=== PATIENT | male | born 1950 | race Caucasian/White ===

== ENCOUNTER → 2017-02-01 | Outpatient (CLI) | payer MEDICARE, OTHER ==
[2017-02-01 10:36] LABS: BASO % 1 % (0-3); EOS # 0.2 x10^3/uL (0.0-0.7); EOS % 3 % (0-3); HEMATOCRIT 43.9 % (39.0-53.0); HEMOGLOBIN 15.5 g/dL (13.0-17.5); LYMPH % 18 % (24-48); MEAN CORPUSCULAR HEMOGLOBIN 31 pg (25-35); MEAN CORPUSCULAR HGB CONC 35 g/dL (31-37); MEAN CORPUSCULAR VOLUME 88 fL (79-100); MONO # 0.5 x10^3/uL (0.0-1.1); MONO % 9 % (0-9); NEUT # 3.8 x10^3uL (1.8-7.7); NEUT % 69 % (31-73); PLATELET COUNT 156 x10^3/uL (140-400); RED BLOOD COUNT 4.97 x10^6/uL (4.30-5.70); RED CELL DISTRIBUTION WIDTH 13.2 % (11.5-14.5); WHITE BLOOD COUNT 5.4 x10^3/uL (4.0-11.0)
[2017-02-01 10:49] LABS: ALBUMIN 4.1 g/dL (3.4-5.0); ALBUMIN/GLOBULIN RATIO 1.3 (1.0-1.7); CALCIUM 9.7 mg/dL (8.5-10.1); CREATININE 0.9 mg/dL (0.7-1.3); GFR 84.7; POTASSIUM 3.6 mmol/L (3.5-5.1); TOTAL BILIRUBIN 0.7 mg/dL (0.2-1.0); TOTAL PROTEIN 7.2 g/dL (6.4-8.2)
--- NOTE | 2017-02-01 13:57 | RAD ---
Three-view study of both knees History: Chronic bilateral knee pain Left knee: No acute fracture or dislocation or osteolytic process is seen. There is moderate joint space narrowing and spurring of the medial tibiofemoral joint compartment. There is mild spurring without joint space narrowing of the lateral tibiofemoral joint compartment. There is mild spurring of the patellofemoral joint compartment. No significant knee joint effusion is seen. IMPRESSION: Tricompartmental primary osteoarthritis of the left knee. Right knee: No acute fracture or dislocation or osteolytic process is seen. There is moderate joint space narrowing and spurring of the medial tibiofemoral joint compartment. Mild spurring without joint space narrowing is seen involving the lateral tibiofemoral joint compartment. Mild spurring of the patellofemoral joint compartment is seen. No significant joint effusion is seen. IMPRESSION: Tricompartmental primary osteoarthritis of the right knee.
== END | disposition home or self-care (01) ==
LOC: LAB 09:14
PROVIDERS: ATTEND Family Medicine
DX: M17.0 Bilateral primary osteoarthritis of knee (principal); M25.80 Other specified joint disorders, unspecified joint; I10 Essential (primary) hypertension; E11.9 Type 2 diabetes mellitus without complications; E78.5 Hyperlipidemia, unspecified
CPT/HCPCS: 36415; 73562; 80053; 80061; 85025

== ENCOUNTER → 2020-05-06 | Outpatient (CLI) | payer MEDICARE, OTHER ==
--- NOTE | 2020-05-06 17:46 | RAD ---
EXAMINATION: MG DIAGNOSTIC BILAT, US BREAST RT History: Breast pain and swelling Comparison: None. Technique: Bilateral digital diagnostic mammogram views were obtained. CAD was utilized. Focused gra yscale and color Doppler ultrasound of the right breast in area of concern in the retroareolar region . Findings: Mammogram: Breast Tissue Density A : The breasts are almost entirely fatty. In the right breast, there is a subglandular flame-shaped density consistent with gynecomastia. There are no dominant masses, suspicious microcalcifications, or architectural distortion in either breast . Ultrasound: In the retroareolar right breast, there is flame shaped hypoechoic tissue compatible with gynecomastia. No suspicious mass. IMPRESSION: 1. Right gynecomastia. 2. No evidence of malignancy. BI-RADS category 2: Benign findings. The images were reviewed with computer aided detection. Mammography is the most sensitive method for finding small breast cancers, but it does not detect the m all and is not a substitute for careful clinical examination. A negative mammogram does not negate a clinically suspicious finding and should not result in delay in biopsying a clinically suspicious a bnormality. "Our facility is accredited by the [employer] Mammography Program." Electronically signed by: Ade Parra MD (05/06/2020 5:43 PM) [id number]
== END ==
LOC: MAMMO 12:32
PROVIDERS: ATTEND Family Medicine
DX: N62 Hypertrophy of breast (principal)
CPT/HCPCS: 76641; 77066